=== PATIENT | male | born 1975 | race Caucasian/White ===

== ENCOUNTER → 2020-04-10 15:59 | Outpatient (CLI) | payer BC, SELFPAY ==
--- NOTE | 2020-04-10 16:16 | XR_ITS ---
PROCEDURE: XR HAND RT MIN 3V CLINICAL INDICATION: PAIN IN THUMB MCP, 4TH MCP JOINT COMPARISON: No exams were available for comparison FINDINGS: No fracture or dislocation. No lytic or blastic change. There is normal mineralization. There is an old fracture the 5th metacarpal distally with mild medial angulation of the distal aspect of the 5th metacarpal. Other findings:None. IMPRESSION: Old 5th metacarpal fracture otherwise negative Dictated by: Lenard Whitley MD 04/10/2020 16:46 Lenard Whitley MD in [place] 04/10/2020 16:46
== END ==
PROVIDERS: PCP Family Medicine; Visit Provider Family Medicine
DX: M79.644 Pain in right finger(s) (principal)
CPT/HCPCS: 73130

== ENCOUNTER → 2022-09-30 15:57 | Outpatient (CLI) | payer BC, SELFPAY ==
[2022-09-30 16:34] LABS: Basophils # 0.1 K/mm3 (0-0.2); Basophils % 0.7 % (0.1-2.0); Eosinophils # 0.5 K/mm3 (0.0-0.4); Eosinophils % 4.6 % (0.1-12.0); Hematocrit 46.2 % (42.0-52.0); Hemoglobin 15.1 g/dL (14.1-18.0); Lymphocytes # 4.4 K/mm3 (0.7-4.5); Lymphocytes % 38.5 % (10-50); Mean Corpuscular HGB Conc 32.6 g/dL (31.8-35.4); Mean Corpuscular Hemoglobin 29.6 pg (27.0-31.2); Mean Corpuscular Volume 90.7 fl (80-94); Monocytes # 0.7 K/mm3 (0.1-1.0); Neutrophils # 5.8 K/mm3 (1.8-7.8); Neutrophils % 50.2 % (37.0-80.0); Platelet Count 248 K/mm3 (142-424); Red Cell Distribution Width 13.9 % (11.5-17.5); White Blood Count 11.5 K/mm3 (4.8-10.8)
[2022-09-30 17:43] LABS: Uric Acid 4.7 mg/dl (3.5-8.5)
== END ==
PROVIDERS: PCP Nurse Practitioner Family; Visit Provider Nurse Practitioner Family
DX: M79.671 Pain in right foot (principal); L02.91 Cutaneous abscess, unspecified
CPT/HCPCS: 36415; 84550; 85025

== ENCOUNTER → 2022-10-03 13:49 | Outpatient (CLI) | payer BC, SELFPAY ==
--- NOTE | 2022-10-03 13:55 | XR_ITS ---
FINAL REPORT CLINICAL HISTORY: RT FOOT SWELLING FINDINGS: RIGHT FOOT 3 views of the right foot were obtained. There is no acute fracture or dislocation. Visualized joint spaces are normally aligned. Soft tissues are unremarkable. IMPRESSION: No acute bony abnormality. Reviewed, Interpreted and Dictated by Michael Mello MD Transcribed by Dorie Laboy Authenticated and . [facility]
== END ==
LOC: RAD 13:50
PROVIDERS: PCP Nurse Practitioner Family; Visit Provider Nurse Practitioner Family
DX: M79.671 Pain in right foot (principal); M79.89 Other specified soft tissue disorders
CPT/HCPCS: 73630

== ENCOUNTER 2024-06-12 17:30 | Emergency (ER) | payer OTHER, SELFPAY ==
[2024-06-12 17:38] VITALS: BP 141/88; PULSE 82; RESP 14; TEMP 37; O2SAT 98; BMI 25.7
[2024-06-12] MEDS: AMOXICILLIN/CLAVULANATE POTASSIUM 875/125MG TABLET 1 EACH PO (17:45)
--- NOTE | 2024-06-12 17:54 | HMH.EDGENADL ---
Discharge Plan Disposition Patient Disposition: Home, Self-Care Prescriptions Prescriptions: New dexamethasone 6 mg tablet 6 mg PO DAILY Qty: 5 0RF amoxicillin-pot clavulanate 875-125 mg tablet 1 tab PO BID 10 Days Qty: 20 0RF No Action meloxicam 7.5 MG tablet 7.5 mg PO BID clindamycin HCl [Cleocin HCl] 300 MG capsule 300 mg PO Q6H Qty: 40 0RF mupirocin 22 GM ointment 1 applicatio topical TID Qty: 1 0RF Referrals Follow up/Referrals: Provider,Referral, MD [Referring] - See instructions Activity Restrictions/Add. Instructions Additional Instructions/Restrictions: Call your family doctor to establish care for this visit to the emergency department and schedule follow-up within 48 hours to ensure improvement. If you have any worsening of your condition or any other concerning signs or symptoms,, or if redness seems to be spreading outside of the area currently is in after 3 days, return to the emergency department or your family doctor for further evaluation Clinical Impressions Clinical Impression: Septic bursitis of elbow Qualifiers: Laterality: right Qualified Code(s): M71.121 - Other infective bursitis, right elbow Print Language Print Language: Bermudian Discharge ED Provider: Elías Mccauley General Adult HPI General Chief complaint: PAIN Stated complaint: right elbow pain and swollen Time Seen by Provider: 06/12/24 17:36 Mode of Arrival: Ambulatory Source of Information: Patient Description of Symptoms (Recalled from ER Triage Doc. by RN): patient sattes in january he injuered his arm, in march he was seen due to the arm swelling and being sore and was diagnosed with cancer, yesterday he was helping a family member move things and his right elbow is swollen and painful today. the pain is sharp and constant, 7/10 History of Present Illness HPI narrative: Please note that above description of symptoms, in this electronic medical record under categorization of recalled from ER triage doctor by RN are reflective of an initial nursing assessment, however, is not reflective of my full history and physical exam that was personally taken and clarified. Consequentially, this preceding description of symptoms, which may include the patient's categorized chief complaint in the EMR, do not reflect my personal clinical impression, and the ultimate description of history of present illness and patient stated complaints should be deferred to this section of the note. Unless stated otherwise or congruent with this section of the note, additional signs, symptoms, or incongruence should be interpreted as inaccurate with my clinical impression. Related Data Home Medications ?Medication ?Instructions ?Recorded ?Confirmed meloxicam 7.5 mg tablet 7.5 mg PO BID Arthritis 11/24/17 11/24/17 Previous Rx's ?Medication ?Instructions ?Recorded clindamycin HCl 300 mg capsule 300 mg PO Q6H #40 caps 11/24/17 (Cleocin HCl) mupirocin 2 % topical ointment 1 applicatio topical TID #1 tube 11/24/17 amoxicillin 875 mg-potassium 1 tab PO BID 10 days #20 tabs 06/12/24 clavulanate 125 mg tablet dexamethasone 6 mg tablet 6 mg PO DAILY #5 tabs 06/12/24 Allergies Allergy/AdvReac Type Severity Reaction Status Date / Time Cephalosporins Allergy Unknown Verified 06/12/24 18:05 allergy reaction ANTIBIOTIC Allergy Unknown Uncoded 06/12/24 18:05 allergy reaction PFSH PFS Disclaimer: The information contained in this section may have been updated after the patient was seen, as this information can be updated by other users. Social History Smoking Status: Current every day smoker alcohol intake: never substance use type: marijuana current occupational status: employed Travel in the last 8 weeks: None ROS Obtained: Yes All systems reviewed & no additional complaints except as documented Physical Exam General General appearance: alert Head Head exam: atraumatic and normocephalic Eye Eye exam: Present normal appearance, PERRL and EOMI Neck Neck exam: Present normal inspection, full ROM and trachea midline Respiratory Respiratory exam: Absent respiratory distress, wheezes, stridor, accessory muscle use or prolonged expiratory phase Cardiovascular Cardiovascular exam: Present other (Pulses equal symmetric in upper and lower extremities) Abdominal Exam Abdominal exam: Present soft; Absent distention, tenderness or pulsatile mass Extremities Exam Extremities exam: Present edema, joint swelling and other (Swelling and redness about right elbow with associated warmth) Neurological Exam Neurological exam: Present alert, oriented X3 and CN II-XII intact; Absent motor sensory deficit Skin Skin exam: Present warm and dry; Absent diaphoresis or erythema Medical Decision Making Medical Records Medical records reviewed: Yes I reviewed the patient's medical records. Screening: Per USPSTF and CDC recommendations, given the prevalence of disease in our region, it is our hospital?s policy to screen for HIV and viral Hepatitis for all patients aged 18 and over and those with ongoing risk factors. Aldo Inquiry Pt receiving controlled substance: No Aldo was queried for this patient: No Vital Signs: 06/12/24 17:38 Temperature 98.6 F Temperature Source Oral Pulse Rate [Right] 82 Respiratory Rate 14 Blood Pressure [Left Arm] 141/88 H Blood Pressure Mean [Left Arm] 105 Blood Pressure Source [Left Arm] Automatic Cuff Blood Pressure Position [Left Arm] Sitting 02 Sat by Pulse Oximetry 98 Oxygen Delivery Method Room Air Orders (Tests/Meds): ED MEDICATIONS Discontinued Medications Generic Name Dose Route Start Last Admin Trade Name Freq PRN Reason Stop Dose Admin Amoxicillin/Clavulanate Potassium 1 each 06/12/24 17:42 06/12/24 17:45 Amoxicillin/Clavulanate Potassium 875/125mg Tablet PO 06/12/24 17:43 1 each ONCE ONE Administration ORDERS Category Date Time Status POCUS Point of Care (ER Only) Stat Exams 06/12/24 17:42 Ordered HIV Combo Stat Lab 06/12/24 17:44 Ordered Hepatitis C Ab Qual. W/ RFX Stat Lab 06/12/24 17:44 Ordered Medical Decision Narrative: 49-year-old male history of bursitis of his right elbow presenting with flareup of bursitis and redness and pain. States that he was doing fine until yesterday, 06/11. He started having redness, swelling, warmth of the right elbow. No difficulty or pain with range of motion, but it feels tight when he flexes his elbow. No other associated symptoms or constitutional symptoms. History was obtained via conversation with patient and . On arrival, patient hemodynamically stable, alert, oriented x4, appropriate, GCS 15, moving all extremities spontaneously, pupils equal and reactive to light. Full physical exam performed and significant for clinically well-appearing male no acute distress. Differential includes bursitis, cellulitis, septic bursitis, septic joint less likely, among others. Because patient without systemic signs or symptoms, hematologic workup was considered including CBC, chemistry, blood cultures, etc., but not deemed necessary. He does have full range of motion of the joint, so incredibly unlikely to be septic joint. Bedside [id number] ultrasound was performed. This was consistent with septic bursitis with surrounding cellulitis. Patient given first dose of Decadron for inflammation as well as Augmentin for infection. Because patient at baseline without signs or symptoms of clinical decompensation, deemed appropriate for discharge. Results were relayed to patient who voiced understanding and were agreeable to outpatient management and follow up. I discussed my clinical impression with patient and answered all questions. At this time, the evidence for any other entities in the differential is insufficient to warrant any further testing or ED observation. This was explained as well. Advisory was given that persistent or worsening symptoms require further evaluation. I confirmed the understanding of this discussion. [employer] disclaimer Much of this encounter note is an electronic soil science technical officer spoken language to printed text. Electronic soil science technical officer of the spoken language may permit errors. Although I have reviewed the note, some errors may still exist. Procedures Limited Ultrasound Indication:: Limited soft tissue ultrasound Indication: Soft tissue swelling and redness right elbow Identified structures: Location: Right elbow Findings: Septic bursitis with surrounding cellulitis Impression: Septic bursitis with surrounding cellulitis Images were saved to permanent archive The study was technically adequate Soft Tissue CPT Codes: CPT Neck: 33090-20 CPT Upper extremity: 91970-23 CPT Axilla: 81425-57 CPT Chest wall: 29180-33 CPT Breast: 92049-85-NE/LT (complete), 55117-40-BK/LT (limited), CPT Upper Back: 68975-79 CPT Lower Back: 35151-14 CPT Abdominal Wall: 04399-43 CPT Pelvic Wall: 78054-79 CPT Lower Extremity: 10884-96 CPT Other Soft Tissue: 79908-40 This study was performed by me, and I personally interpreted all images/videos. Based on my clinical judgement, these images were adequate and did not necessitate further imaging. Critical Care Critical Care Time Critical Care Time: No
[2024-06-12] MEDS: DEXAMETHASONE 4MG TABLET 10 MG PO (18:14)
[2024-06-12 18:21] VITALS: BP 145/78; PULSE 78; RESP 15; TEMP 36.9; O2SAT 99
--- OUTSIDE RECORDS SUMMARY | 2024-06-16 20:03 | XMS_ITS | Continuity of Care Document ---
Author Organization [facility], SURGERY SCHEDULE Address [address] [place] [phone] Care Team Providers Care Back Shoe Worker Name Role Phone CARMEN JAMESON Referring Provider Assessment No assessment recorded. Plan of Treatment Reminders Order Date Submit Date Provider Last Modified By Organization Details Last Modified Time Details Appointments None record ed. Lab None record ed. Referral None record ed. Procedures None record ed. Surgeries None record ed. Imaging None record ed. Medication Orders None record ed. Patient TargetsNo targets recorded. Patient InstructionsNo instructions recorded. Reason for Referral None Reported. Results Created Date Observation Date Name Description Value Unit Range Abnormal Flag Note LastModifiedBy Organization Detail LastModifiedTime 04/14/1904/14/2024 MRI, pelvi s, w/wo contr ast [facility] [address] [place] [address] Patifani t Name: KAYLEY huerta : 1974 Patifani t 2 Orderi ng Provid er: LUKE FERRARI EXAM DATE: 2024 EXAM: MR PELVIS ATTN PROSTA TE W/WO CONTRA ST CLINIC AL INFORM ATION: Elevat ed PSA TECHNI QUE: No POC testin g for eGFR was perfor med due to absenc e of risk factor s. Tripla ijeoma T2, axial DWI, ADC map, axial T1 pre- and dynami c postco ntrast -enhan lily images as well as axial T1 fat-sa t imagin g was perfor med after inject ion of 7.[address] (1 x 7.5 mL bottle of FORMERLY NAMED [facility] [id number]- [id number] ) IV. The patien t did not requir e sedati on for this exam. COMPAR ENRIQUE: None. FINDIN GS: PROSTA TE SIZE MEASUR EMENTS : Prosta te dimens ions = 4.2 x 3.7 x 4.2 cm (T x AP x CC). QUALIT Y: Good PERIPH ERAL ZONE: Overal l, periph eral zone is normal in size and backgr ound signal charac terist ics, A suspic ious focal lesion is seen as decibe d below. PI-RAD S catego ry = 4/5 locate d in the medical chemist ior periph eral zone left and right of midlin e at mid gland level. Measur ement = 12 mm. Seen best in image 12 of series 8001, 7006, 7007, and equivo cathy on dynami c imagin g. It is positi ve on T2 WI, ADC, DWI and DCE images . TRANSI TION ZONE: Multip le, well deline ated encaps ulated nodule s are seen consis tent with BPH. No suspic ious focal lesion is seen. CAPSUL E AND NEIGHB ORING STRUCT URES: No capsul ar invasi on is identi fied. Neuro- vascul ar bundle s are normal bilate rally. Semina l vesicl es are normal . PELVIC LYMPH NODES: Small likely benign bilate ral inguin al nodes. The larges t is on the left measur ing 1.5 cm PELVIC BONES: No suspic ious osseou s lesion is seen. IMPRES RUDDY: 1. Change s of BPH 2. BI-RAD S 4/5 lesion involv ing the medical chemist ior periph eral zone left right of midlin e, mid gland 3. Semina l vesicl es unrema rkable 4. Likely incide ntal bilate ral inguin al nodes Interp reted By: Carmen Valencia MD Electr onical ly Signed By: Carmen Valencia MD on 04/14/19 2:[address] [facility] Radiology [address], [phone], 04/27/2024 14:54:37 05/12/19 25 05/11/2024 NM, bone scan, whole body [address] [id number] Patien t Name: KAYLEY huerta : 1974 Patifani t 2 Orderi ng Provid er: LUKE FERRARI JR EXAM DATE: 2024 EXAM: NM BONE IMAGIN G, WHOLE BODY HISTOR Y: 49-yea r-old male with prosta te cancer . COMPAR ENRIQUE: None. TECHNI QUE: Whole body bone scan was perfor med using techne tium 99m MDP 23.6 mCi IV (FORMERLY NAMED [facility] [id number]). Two hour delaye d images were obtain ed. FINDIN GS: The calvar ium appear s normal . There are mild degene rative change s in the should ers and sterno clavic ular joints . The ribs appear normal . There are minima l degene rative change s throug hout the spine. There are mild degene rative change s in the hips, knees, and feet. No metast atic lesion is identi fied. IMPRES RUDDY: 1. There is no eviden ce of metast atic diseas e. Interp reted By: Yadira valdes MD Electr onical ly Signed By: Yadira valdes MD on 05/12/19 1:18 PM [facility] Nuclear Medicine [address] [place] [address], [address], 05/11/2024 17:06:38 05/31/19 25 05/30/2024 PET-C T, skull base to mid-t high scan [address] [address] [phone] [facility] Patien t Name: KAYLEY huerta : 1974 Patifani t 2 Orderi ng Provid er: LUKE FERRARI JR EXAM DATE: 2024 EXAM: PET-CT PSMA SKULL MID THIGH SUB ST CLINIC AL INFORM ATION: Prosta te Cancer - Initia l PROCED URE: A baseli ne serum creati nine with eGFR was obtain ed prior to inject ion of contra st medium due to the patien ts risk factor s for MARIA C. Calcul ated eGFR at time of exam was GFR = 70 6.7 mCi Ga-68 PSMA (FORMERLY NAMED [facility] [id number]- [id number] ) was inject ed IV. After an uptake time of 71 minute s, vertex throug h midthi gh PET imagin g was perfor med. This was follow ed by a low dose attenu ation correc tion/a natomi c locali zation CT from vertex throug h the midthi gh levels . Urinar y tract was opacif ied with an inject ion of 50 mL Omnipa que 350 (1 x 50 ml bottle of FORMERLY NAMED [facility] [id number] ) admini stered 20 minute s before the CT scan. None was wasted and discar ded. The patien t did not requir e sedati on for this exam. COMPAR ENRIQUE: None FINDIN GS ON PET WITH CT CORREL ATION: This study is limite d due to the patien t's inabil ity to hold still for the exam theref ore motion artifa ct is presen t creati ng misreg istrat ion. Normal expect ed uptake is seen in the lacrim al glands , saliva ry glands , sinona jamey comple x, liver, spleen , kidney s, small bowel and urinar y bladde r. Refere nce blood pool mean SUV = 0.7. Refere nce mean SUV of the liver = 4.3. Refere nce mean SUV of the paroti d glands = 12. Prosta te cancer specif ic areas of uptake are descri bed below. PROSTA TE/PRO STATIC BED: Psma avid prosta te with a lesion to the right of midlin e with an SUV is 6.4. PELVIC LYMPH NODES: No uptake is seen in any of the pelvic lymph node region s. DISTAN T SPREAD : No lympha denopa thy or abnorm al uptake is seen in the distan t retrop eriton eal, medias tinal, or suprac lavicu lar lymph node region s. No suspic ious skelet al lesion or area of uabnor mal skelet al uptake is seen. No suspic ious pulmon tobias nodule or area of abnorm al uptake is seen. ADDITI ONAL FINDIN GS ON CT: No signif icant additi onal findin g is seen. COMBIN ED IMPRES RUDDY: 1. Psma avid prosta te lesion compat ible with malign brinda 2. The exam is limite d due to misreg istrat ion artifa cts althou gh no gross eviden ce of local or distan t metast atic diseas e is noted Interp reted By: Carmen Valencia MD Electr onical ly Signed By: Carmen Valencia MD on 025 11:01 AM [facility] [address] [place], [phone], 05/30/2024 12:44:15 Result Notes None recorded. Problems Name Problem SNOMED Code Status Onset Date Resolution Date Notes Provider Name and Address Organization Details Recorded Time Prostate specific antigen above reference range 807478369 Active 025 LUKE HAYDEN JR, MD [address] [place], [address], [facility] 07:42:45 Malignant tumor of prostate 817126453 Active 025 LUKE HAYDEN JR, MD [address] [place] [address], [phone], [facility] 14:18:40 Problem Notes None recorded. Procedures Surgical History Date Name Laterality Status Provider Name and Address Organization Details Recorded Time 04/27/2024 Biopsy Prostate, Needle w/Transrect al US completed LUKE HAYDEN JR, MD [facility] [place], [address], [facility] 04/27/2024 15:02:15 Imaging Results None recorded. Procedure Notes None recorded. Medical Equipment None Reported. Allergies No known drug allergies Medications Name Sig Start Date Stop Date Status Note LastModified by Organization Details LastModified Time cefuroxime axetil 500 mg tablet Take 1 tablet every 12 hours by oral route. 05/13 completed Not Available Not Available Not Available Vitals None Recorded Social History Question Answer Notes LastModified by Organizat ion Details LastModified Time Tobacco Smoking Status [facility] 03/31/2024 13:28:13 What Is Your Level Of Alcohol Consumption? None [email or web address] Information not available 03/31/2024 How Many Times Per Week Do You Consume Alcohol? Less Than 1 Time Per Week [email or web address] Information not available 05/13/2024 Are You Currently Employed? Yes [email or web address] Information not available 03/31/2024 Do You Or Have You Ever Used E-cigarettes Or Vape? 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 03/31/2024 [email or web address] Information not available 03/31/2024 What Is Your Relationship Status? [email or web address] Information not available 03/31/2024 At What Age Did You Start Smoking Tobacco? 18 [email or web address] Information not available 03/31/2024 Do You Or Have You Ever Used Smokeless Tobacco? Never Used Smokeless Tobacco [email or web address] Information not available 05/13/2024 How Much Tobacco Do You Smoke? 1 PPD [email or web address] Information not available 03/31/2024 How Many Years Have You Smoked Tobacco? 30 [email or web address] Information not available 03/31/2024 Do You Or Have You Ever Used Any Other Forms Of Tobacco Or Nicotine? No [email or web address] Information not available 03/31/2024 Sex: Unknown Functional Status None recorded. Mental Status None recorded. Family History Relationship Description Onset Age of this Age Resolved Age Notes LastModified by Organization Details LastModified Time Paternal Grandmother Family history of malignant neoplasm 70 [email or web address] Not available 2024 10:48:36 Mother Type 2 diabetes mellitus 68 [email or web address] Not available 2024 10:48:36 Unspecified Relation Family history of malignant neoplasm [email or web address] Not available 03/31 13:28:13 Maternal Grandfather Family history of malignant neoplasm 91 [email or web address] Not available 2024 10:48:36 Paternal Grandfather Family history of malignant neoplasm 80 [email or web address] Not available 2024 10:48:36 Father Family history of malignant neoplasm [email or web address] Not available 03/31 13:28:13 Father Kidney stone 71 [email or web address] Not availab le 05/13/2024 10:48:36 Medical History Condition Response Arthritis Y False Teeth Y Past Encounters Encounter ID Performer Location Encounter Start Date Encounter Closed Date Diagnosis/Indication Diagnosis SNOMED-CT Code Diagnosis ICD10 Code Diagnosis Note [id number] Giovanna Vincent CUA, [facility] [address] [place] [address] 03/31/2024 12:53:54 03/31/2024 16:07:03 Prostate nodule 9862593920 29963 N40.2 Further investigat ion warranted due to nodular findings. Plan includes potential MRI and/or prostate biopsy based on initial test results to rule out neoplasm or other abnormalit ies. Informed consent for the investigat ion including risks and benefits was obtained. Screening for malignant neoplasm of prostate 122180242 Z12.5 Benign pro static hyperplasia with outflow obstruction 504702330 N40.1 [id number] LUKE HAYDEN JR, MD SURGERY SCHEDULE [address] [place] [address] 04/27/2024 12:43:50 04/27/2024 12:49:31 Prostate specific antigen above reference range 386798282 R97.20 Health Concerns Section Related Observation LastModified by Organization Detai ls LastModified Time None Recorded Concern Status LastModified by Organization Details LastModified Time None Recorded Payers Encounter Date Sequence Insurance Name Policy Number Policy López Covered Member ID López Member ID Guarantor Name 04/27/2024 1 [facility] [id number] Adrien Alvarado [id number] Maverick Alvarado Notes Date Note Type Note Provider Name and Address Organization Details Recorded Time 04/27/2024 text/html The patient is a 49-year-old male presenting with elevated PSA levels. The patient's PSA level is 6.73 as of January 22, 2024. He has no history of lower urinary tract symptoms and denies hematuria, dysuria, any episodes of urinary tract infections, or prostatitis. He has no family history of prostate cancer. He has not undergone any treatment for benign prostatic hyperplasia with medication or surgery. On examination, the prostate was found to be approximately 30 grams and nodular, particularly on the right side. History of Present Illness ?How long has patient had this problem?Unk nown ?What signs or symptoms is patient having?Non e ?Does the problem interfere with normal daily function?No ?Patient Current Weight ?187 pounds ?Patient Height ?6 feet ?Do you have Hypertension?No ?Problem Rating ?On a scale of 1-10, (10 is the worst), select the number that best describes your problem - 3 ?Who is your PCP (primary care)?Elia Jameson Imported from [employer] on 03/31/2024 LUKE HAYDEN JR, MD [address] [place], [address], [facility] 04/27/2024 15:02:35
--- OUTSIDE RECORDS SUMMARY | 2024-06-16 20:03 | XMS_ITS | Data Portability ---
Author Organization [facility] JESSICA French FREDONIA CLOSED Address [address] [facility] [address] [place] [address] Care Team Providers Care Still Cleaner Name Role Phone CARMEN TREADWELL Referring Provider [phone] Assessment Encounter Date Assessment Date Assessment LastModified by Organization Details LastModified Time 03/31/2024 03/31/2024 49-year-old male with history of elevated PSA presenting with elevated levels noted at 6.73. The differential diagnosis includes prostate pathology, necessitating further evaluation. Physical examination reveals a nodular prostate, suggesting possible prostate neoplasm or benign prostatic hyperplasia. Further diagnostic evaluation with PSA fraction, MRI, or biopsy is prudent for definitive diagnosis. [email or web address] Not available 03/31/2024 13:44:08 05/13/2024 05/13/2024 49-year-old male with a history of adenocarcinoma of the prostate presenting for follow-up for prostate cancer treatment options. Biopsy confirms diagnosis with Wharton 4+3=7 and PSA 6.54. Planning robotic-assisted laparoscopic prostatectomy with lymphadenectomy. Imaging guides intervention with pending PSMA PET scan to define approach. Patient informed and consented. [email or web address] Not available 05/13/2024 13:57:53 Plan of Treatment Reminders Order Date Submit Date Provider Last Modified By Organization Details Last Modified Time Details Appointments None recorded. Lab urinalysi s panel, auto 2024 025 [facility], [address], [place], [address], 07:28:58 PSA, total + free, serum or plasma 2024 025 [email or web address] [facility], [address] [place], [address], 16:08:23 Referral None recorded. Procedures None recorded. Surgeries prostatec chantelle with bilateral pelvic lymph node dissectio n, robot assisted laparosco pic (SURG) 2024 025 [facility] Surgery Scheduling, [address] [facility], [place], [address], 12:46:47 Imaging PET-CT, skull base to mid-thigh scan 2024 025 [facility], [address] [place], [address], 11:06:50 Medication Orders None recorded. Patient TargetsNo targets recorded. Patient Instructions Encounter Date Encounter Id Patient Instructions Last Modified By Organization Details Last Modified Time 03/31/2024 [id number] - Undergo the PS A free to total fraction test as discussed. - Await further instructions regarding potential MRI or biopsy based on test results. - Report any new urinary symptoms, bleeding, or discomfort immediately. [email or web address] Not available 03/31/2024 13:44:13 05/13/2024 [id number] - Prepare for scheduled robotic-assisted prostate surgery. - Understand catheter will remain for at least 10 days post-surgery. - Plan for recovery time, including potential impact on work. - Follow postoperative care instructions for healing, including catheter management. - Await further instructions pending PSMA PET scan results. - Report any complications or concerns immediately for quick follow-up. [email or web address] Not available 05/13/2024 13:57:55 We carried out a full lengthy discussion today of his disease, his specific prognostic parameters, and all available treatment options including /watchful waiting, radical prostatectomy, all forms of radiation therapy, HIFU and cryotherapy. We did discuss risks and potential complications of each form of therapy at length. We carried out a full lengthy discussion today of his disease, his specific prognostic parameters, and all available treatment options including /watchful waiting, radical prostatectomy, all forms of radiation therapy, HIFU and cryotherapy. We did discuss risks and potential complications of each form of therapy at length. He desires to proceed with RALRPX as described to him in detail. We will proceed with a nerve sparing approach if deemed technically feasible at the time of the procedure. We discussed the potential side effects of urinary incontinence and erectile dysfunction in particular. He fully understands risks and potential complications and desires to proceed. [email or web address] Not available 05/13/2024 14:51:11 Reason for Referral None Reported. Results Created Date Observation Date Name Description Value Unit Range Abnormal Flag Note LastModifiedBy Organization Detail LastModifiedTime 03/31/1903/31/2024 PSA, TOTAL AND FREE prostate specific Ag 6.540 NG/mL 0.000- 3.100 high The % Free PSA ratio is usefu l as an aid in disti nguis ale prost ate cance r from benig n prost ate condi tions in men 50 years or older who have a digit al recta l exam that is not suspi cious for prost ate cance r and a Total PSA value in the range of 4.0 - 10.0. Pleas e notif y the lab at 258-4 150 withi n 24 hrs if add-o n testi ng of Free PSA is lisa ed. This test was perfo rmed using Jamaal e801 Elect jamaal milum inesc ent metho d. The test metho d is based on WHO-s tanda rdize d calib ratio n. Value s obtai stefania from diffe rent assay metho ds or manuf actur ers may not be tomeka rable . Not Available [facility] [address] [place], [address], 03/31/2024 16:59:12 03/31/1903/31/2024 PSA, TOTAL AND FREE free PSA 1.81 NG/mL normal Test metho d is based on WHO-s tanda rdize d calib ratio n using the Jamaal E801 maria e zer. Free PSA resul ts by diffe rent test proce dures canno t be direc tly tomeka red with one anoth er. Not Available [facility] [address] [place] [address], [address], 03/31/2024 16:59:12 03/31/19 25 03/31/2024 PSA, TOTAL AND FREE % free PSA 28 % normal ____ PSA ng/mL % FREE PSA Proba bilit y of Prost ate Cance r % ____ Less than 4.00 N/A 17% 4.0 - 10.0 0-10 56% 10-15 28% 15-20 20% 20-25 16% Great er than 25 8% Great er than 10.0 N/A 49% ____ Not Available [facility] [address] [place] [address], [address], 03/31/2024 16:59:12 03/31/19 25 03/31/2024 urina lysis panel , auto Unknown Analyte Clean Catch Not Available [facility] [place] [address], [place], [address], 03/31/2024 13:31:05 03/31/19 25 03/31/2024 urina lysis panel , auto Unknown Analyte Yellow Not Available [facility] [place] [address], [place], [address], 03/31/2024 13:31:05 03/31/19 25 03/31/2024 urina lysis panel , auto Unknown Analyte Clear Not Available [facility] [address], [place], [address], 03/31/2024 13:31:05 03/31/19 25 03/31/2024 urina lysis panel , auto Unknown Analyte 1.020 Not Available [facility] [address], [place], [address], 03/31/2024 13:31:05 03/31/19 25 03/31/2024 urina lysis panel , auto Unknown Analyte 1.003- 1.035 Not Available [facility] [address], [place], [address], 03/31/2024 13:31:05 03/31/19 25 03/31/2024 urina lysis panel , auto Unknown Analyte 5.0 Not Available [facility] [address], [place], [address], 03/31/2024 13:31:05 03/31/19 25 03/31/2024 urina lysis panel , auto Unknown Analyte 5.0-8. 0 Not Available [facility] [address], [place], [address], 03/31/2024 13:31:05 03/31/19 25 03/31/2024 urina lysis panel , auto Unknown Analyte Negati ve Not Available [facility] [address], [place], [address], 03/31/2024 13:31:05 03/31/19 25 03/31/2024 urina lysis panel , auto Unknown Analyte Negati ve Not Available [facility] U[facility] [address], [place], [address], 03/31/2024 13:31:05 03/31/19 25 03/31/2024 urina lysis panel , auto Unknown Analyte Negati ve Not Available [facility] [address], [place], [address], 03/31/2024 13:31:05 03/31/19 25 03/31/2024 urina lysis panel , auto Unknown Analyte Negati ve Not Available [facility] [address], [place], [address], 03/31/2024 13:31:05 03/31/19 25 03/31/2024 urina lysis panel , auto Unknown Analyte Trace Not Available [facility] [address], [place], [address], 03/31/2024 13:31:05 03/31/19 25 03/31/2024 urina lysis panel , auto Unknown Analyte Negati ve Not Available [facility] [address], [place], [address], 03/31/2024 13:31:05 03/31/19 25 03/31/2024 urina lysis panel , auto Unknown Analyte Normal Not Available [facility] [address], [place], [address], 03/31/2024 13:31:05 03/31/19 25 03/31/2024 urina lysis panel , auto Unknown Analyte Normal Not Available [facility] [address], [place], [address], 03/31/2024 13:31:05 03/31/19 25 03/31/2024 urina lysis panel , auto Unknown Analyte Negati ve Not Available [facility] [address], [place], [address], 03/31/2024 13:31:05 03/31/19 25 03/31/2024 urina lysis panel , auto Unknown Analyte Negati ve Not Available [facility] [address], [place], [address], 03/31/2024 13:31:05 03/31/19 25 03/31/2024 urina lysis panel , auto Unknown Analyte Normal Not Available [facility] [address], [place], [address], 03/31/2024 13:31:05 03/31/19 25 03/31/2024 urina lysis panel , auto Unknown Analyte Normal 1 mg/dl Not Available [facility] [address], [place], [address], 03/31/2024 13:31:05 03/31/19 25 03/31/2024 urina lysis panel , auto Unknown Analyte Negati ve Not Available [facility] [address], [place], [address], 03/31/2024 13:31:05 03/31/19 25 03/31/2024 urina lysis panel , auto Unknown Analyte Negati ve Not Available [facility] U[facility] [address], [place], [address], 03/31/2024 13:31:05 03/31/19 25 03/31/2024 urina lysis panel , auto Unknown Analyte 50 Delvis/ul Not Available [facility] [address] [facility] [address], [place], [address], 03/31/2024 13:31:05 03/31/19 25 03/31/2024 urina lysis panel , auto Unknown Analyte Negati ve Not Available [facility] [address] [facility] [address], [place], [address], 03/31/2024 13:31:05 04/27/19 25 04/27/2024 SURGI CATHY surgical SEE BELOW abnormal Surgi cathy Patho logy Repor t NAME: ADRIEN COOK PATH: [id number] DATE of : [birth year] 60 Copy to: Diagn osis: Prost ate needl e core biops ies: A) Left base: - Prost atic adeno carci noma, Gleas on score 3+3 = 6, singl e minut e focus , less than 0.2 mm, withi n one small fragm ent. - Grade Group 1. B) Left mid: - Prost atic adeno carci noma, Gleas on score 4+3 = 7 (80% grade 4 patte rn). - Grade group 3. - Tumor invol ves 2 out of 2 cores , 95% and 85%. C) Left apex: - Prost atic adeno carci noma, Gleas on score 4+3 = 7 (80% grade 4 patte rn). - Grade group 3. - Tumor invol ves 2 out of 2 cores , 80% and 80%. D) Right base: - Prost atic adeno carci noma, Gleas on score 4+3 = 7 (60% grade 4 patte rn). - Grade group 3. - Tumor invol ves 3 out of 3 cores (80%, 70% and 10%). E) Right mid: - Prost atic adeno carci noma, Gleas on score 4+3 = 7 (60% grade 4 patte rn). - Grade group 3. - Tumor invol ves 2 out of 2 cores (95% and 80%). F) Right apex: - Prost atic adeno carci noma, Gleas on score 4+3 = 7 (60% grade 4 patte rn). - Grade group 3. - Tumor invol ves 2 out of 2 cores (100% and 90%). G) Perip heral zone lesio n: - Prost atic adeno carci noma, Gleas on score 4+3 = 7 (60% grade 4 patte rn). - Grade group 3. - Tumor invol ves 4 out of 6 cores (100% , 80%, 10% and 10%). SOUR E OF SPECI MEN: PROST ATE BIOPS Y, A) LEFT BASE & B) LEFT MID PROST ATE BIOPS Y, C) LEFT APEX & D) RIGHT BASE PROST ATE BIOPS Y, E) RIGHT MID & F) RIGHT APEX PROST ATE , PERIP HERAL ZONE LESIO N CLINI CATHY INFOR MATIO N: R97.2 0 PSA LEVEL : 6.54 Gross Descr iptio n: Elaine fischer's name and date of verif ied. Recei wojciech in forma natalia label ed with the elaine fischer's name are seven separ ate speci mens desig nated as prost ate biops y. All tissu e consi sts of painter cylin ders 0.[address] If tissu e from two sites is place d in one casse tte, the latte r site is inked black ; e.g. if tissu es from site A and B are in one casse tte, the tissu es from site B are inked . SECTI ON LENGT H IN CENTI METER S A) Left Base (2) 1.6 cm (2 cores ) B) Left Mid 1.6, 1.8 cm (2 cores ) C) Left [place] 1.4, 1.5 cm (2 cores ) D) Right Base 0.2, 1.3, 1.8 cm (3 cores ) E) Right Mid 1.8, 1.9 cm (2 cores ) F) Right [place] (2) 1.5 cm (2 cores ) G) Perip heral Zone Lesio n 0.2, 0.5, 0.6, 1.1, 1.2, 1.5 cm (6 cores ) -subm itted in casse ttes D1 (G1) and D2 (G2) SB 04/27 06:09 PM Micro scopi c Descr iptio n: A micro scopi c exami natio n has been perfo rmed and the resul t(s) are as noted above . ABRAM SIBLEY MD Irene d Out Date: 04/28 14:40 Page 1 of 1 Not Available [facility] [address] [place] [address], [address], 04/28/2024 14:40:19 04/14/19 25 04/14/2024 MRI, pelvi s, w/wo contr ast [address] [address] Patien t Name: KAYLEY COOK Patien t : 1974 Patien t 2 Orderi ng Provid er: LUKE [...] st (1 x 7.5 mL bottle of [facility] [address]059- 325-01 ) IV. The patien t did [...] ry = 4/5 locate d in the employee representative ior periph eral zone left and right [...] BI-RAD S 4/5 lesion involv ing the employee representative ior periph eral zone left right of midlin e, mid gland 3. Semina l vesicl es unrema rkable 4. Likely incide ntal bilate ral inguin al nodes Interp reted By: Carmen Valencia MD Electr onical ly Signed By: Carmen Valencia MD on 04/14/19 2:04 PM [facility] [address], [address], 04/27/2024 14:54:37 05/12/1905/11/2024 NM, bone scan, whole body [address] [address] [phone] Patien t Name: KAYLEY COOK Patien t : 1974 Patien t 2 Orderi ng Provid er: LUKE FERRARI EXAM DATE: 2024 EXAM: NM BONE IMAGIN G, WHOLE BODY HISTOR Y: 49-yea r-old male with prosta te cancer . COMPAR ENRIQUE: None. TECHNI QUE: Whole body bone scan was perfor med using techne tium 99m MDP 23.6 mCi IV ([facility] 458006 -0040- 1). Two hour delaye d images [...] Yadira valdes MD on 05/12/19 1:18 PM [facility] Nuclear Medicine [address] [place], [address], 05/11/2024 17:06:38 05/31/19 25 05/30/2024 PET-C T, skull base to mid-t high scan [facility] [address] [place] [address] [facility] Patien t Name: KAYLEY COOK Patien t : 1974 Patien t 2 Orderi ng Provid er: LUKE DALY [facility] EXAM DATE: 2024 EXAM: PET-CT PSMA SKULL MID THIGH SUB CLINIC AL INFORM ATION: Prosta te Cancer - Initia l PROCED URE: A baseli ne serum creati nine with eGFR was obtain ed prior to inject ion of contra st medium due to the patien ts risk factor s for MARIA C. Calcul ated eGFR at time of exam was GFR = 70 6.7 mCi Ga-68 PSMA ([facility] [address]44- 100-64 ) was inject ed IV. After [...] 350 (1 x 50 ml bottle of [facility] 0407-1 414-89 ) admini stered 20 minute [...] Carmen Valencia MD on 025 11:01 AM [facility] [address], [address], 05/30/2024 12:44:15 Result Notes None recorded. Problems Name Problem SNOMED Code Status Onset Date Resolution Date Notes Provider Name and Address Organization Details Recorded Time Prostate specific antigen above reference range 275932080 Active 025 LUKE HAYDEN JR, MD [address] [place] [address], [address], [facility] 5 07:42:45 Malignant tumor of prostate 077792098 Active 025 LUKE HAYDEN JR, MD [address] [place] [address], [address], [facility] 5 14:18:40 Problem Notes None recorded. Procedures Surgical History Date Name Laterality Status Provider Name and Address Organization Details Recorded Time 04/27/2024 Biopsy Prostate, Needle w/Transrect al US completed LUKE HAYDEN JR, MD [address] [place] [address], [address], [facility] 04/27/2024 15:02:15 Imaging Results Imaging Date Name Status LastModified by Organiz ation Details LastModified Time 04/14/2024 MRI, pelvis, w/wo contrast completed [facility] [address], [address], 04/27/2024 14:54:37 05/11/2024 NM, bone scan, whole body completed [facility] Nuclear Medicine [address] [place] [address], [address], 05/11/2024 17:06:38 05/30/2024 PET-CT, skull base to mid-thigh scan completed [facility] [address], [address], 05/30/2024 12:44:15 Procedure Notes None recorded. Medical Equipment None Reported. Allergies No known drug allergies Medications Name Sig Start Date Stop Date Status Note LastModified by Organization Details LastModified Time cefuroxime axetil 500 mg tablet Take 1 tablet every 12 hours by oral route. 05/13 completed Not Available Not Available Not Available Vitals Date Recorded Body height Body mass index (BMI) Body weight Provider Name and Address Organization Details Last Updated DateTime 03/31/2024 182.88 cm 25.4 kg/m2 67934.77 g Felicia Vogelers [facility] 03/31/2024 13:33:00 Date Recorded Body height Body mass index (BMI) Body weight Provider Name and Address Organization Details Last Updated DateTime 05/13/2024 182.88 cm 25.4 kg/m2 43947.77 g Hannah Escalanteson [facility] 05/13/2024 10:55:51 Social History Question Answer Notes LastModified by Organizat ion Details LastModified Time Tobacco Smoking Status Current Every Day Smoker Jessica [facility] 03/31/2024 13:28:13 What Is Your Level Of Alcohol Consumption? None Information not available 03/31/2024 How Many Times Per Week Do You Consume Alcohol? Less Than 1 Time Per Week [email or web address] Information not available 05/13/2024 Are You Currently Employed? Yes Information not available 03/31/2024 Do You Or Have You Ever Used E-cigarettes Or Vape? Never Used Electronic Cigarettes [email or web address] Information not available 05/13/2024 What Is Your Occupation? [employer] Information not available 03/31/2024 What Was The Date Of Your Most Recent Tobacco Screening? 03/31/2024 [email or web address] Information not available 03/31/2024 What Is Your Relationship Status? Information not available 03/31/2024 At What Age Did You Start Smoking Tobacco? 18 [email or web address] Information not available 03/31/2024 Do You Or Have You Ever Used Smokeless Tobacco? Never Used Smokeless Tobacco [email or web address] Information not available 05/13/2024 How Much Tobacco Do You Smoke? 1 PPD Information not available 03/31/2024 How Many Years Have You Smoked Tobacco? 30 [email or web address] Information not available 03/31/2024 Do You Or Have You Ever Used Any Other Forms Of Tobacco Or Nicotine? No Information not available 03/31/2024 Sex: Unknown Functional Status None recorded. Mental Status None recorded. Family History Relationship Description Onset Age of this Age Resolved Age Notes LastModified by Organization Details LastModified Time Paternal Grandmother Family history of malignant neoplasm 68 [facility] Not available 2024 10:48:36 Mother Type 2 diabetes mellitus 68 [facility] Not available 2024 10:48:36 Unspecified Relation Family history of malignant neoplasm [email or web address] Not available 03/31 13:28:13 Maternal Grandfather Family history of malignant neoplasm 91 [facility]-27 Not available 2024 10:48:36 Paternal Grandfather Family history of malignant neoplasm 80 [facility]-27 Not available 2024 10:48:36 Father Family history of malignant neoplasm [email or web address] Not available 03/31 13:28:13 Father Kidney stone 71 [facility]-27 Not availab le 05/13/2024 10:48:36 Medical History Condition Response Arthritis Y False Teeth Y Past Encounters Encounter ID Performer Location Encounter Start Date Encounter Closed Date Diagnosis/Indication Diagnosis SNOMED-CT Code Diagnosis ICD10 Code Diagnosis Note [id number] Giovanna Rambradley [facility]ESE [facility] [address] [place] [phone] 03/31/2024 12:53:54 03/31/2024 16:07:03 Prostate nodule 6824972090 27087 N40.2 Further investigat ion warranted due to nodular findings. Plan includes potential MRI and/or prostate biopsy based on initial test results to rule out neoplasm or other abnormalit ies. Informed consent for the investigat ion including risks and benefits was obtained. Screening for malignant neoplasm of prostate 669309799 Z12.5 Benign pro static hyperplasia with outflow obstruction 982403083 N40.1 [id number] LUKE HAYDEN JR, MD SURGERY SCHEDULE [address] [place] [address] 04/27/2024 12:43:50 04/27/2024 12:49:31 Prostate specific antigen above reference range 730677320 R97.20 [id number] LUKE HAYDEN JR, MD [facility] [address] [place] [address] 05/13/2024 10:48:35 05/13/2024 11:30:33 Adenocarcinoma of prostate 210488218 C61 Scheduled for robotic-as sisted laparoscop ic radical prostatect rubi with lymphadene ctomy post-adeno carcinoma confirmati on. Biopsy reflects Wharton 4+3=7; PSA 6.54. MRI shows lymphadeno bebo, PSMA PET for further evaluation , and robotic precision guidance noted. Post-op care includes catheteriz ation minimum 10 days. Risks, benefits, and alternativ es discussed; consent obtained. Pelvic lymphadenopathy 629658306 R59.0 Health Concerns Section Related Observation LastModified by Organization Detai ls LastModified Time None Recorded Concern Status LastModified by Organization Details LastModified Time None Recorded Advance Directives Directive None Recorded Payers Encounter Date Sequence Insurance Name Policy Number Policy López Covered Member ID López Member ID Guarantor Name 03/31/2024 1 [facility] [id number] Kaley Cook [id number] Maverick Cook 04/27/2024 1 [facility] [id number] Adrien Cook [id number] Maverick Cook 05/13/2024 1 [facility] [id number] Adrien Cook [id number] Maverick Cook Notes Date Note Type Note Provider Name and Address Organization Details Recorded Time 03/31/2024 text/html The patient is a 49-year-old male [...] Illness ?How long has patient had this problem?Unkno wn ?What signs or symptoms is patient having?None ?Does the problem interfere with normal daily function?No ?Patient Current Weight ?187 pounds ?Patient Height ?6 feet ?Do you have Hypertension?No ?Problem Rating ?On a scale of 1-10, (10 is the worst), select the number that best describes your problem - 3 ?Who is your PCP (primary care)?Carmen Treadwell Imported from [facility] on 03/31/2024 Giovanna Vincent [facility] 04/04/2024 14:56:43 04/27/2024 text/html The patient is a 49-year-old [...] Illness ?How long has patient had this problem?Unkno wn ?What signs or symptoms is patient having?None ?Does the problem interfere with normal daily function?No ?Patient Current Weight ?187 pounds ?Patient Height ?6 feet ?Do you have Hypertension?No ?Problem Rating ?On a scale of 1-10, (10 is the worst), select the number that best describes your problem - 3 ?Who is your PCP (primary care)?Carmen Treadwell Imported from [employer] on 03/31/2024 LUKE HAYDEN JR, MD [address] [place], [address], [facility] 04/27/2024 15:02:35 05/13/2024 text/html The patient is a 49-year-old male presenting with a follow-up for prostate cancer. Biopsy on April 27, 2024, indicated adenocarcinoma with Wharton 4+3=7. Initial PSA was 6.54. Bone scan negative for metastasis. MRI shows no extraprostatic extension. Genomic testing denotes high-risk genetic profile. Currently, planning robotic-assisted laparoscopic prostatectomy with lymphadenectomy. MRI identified lymphadenopathy, benign in appearance; PSMA PET scan pending for further evaluation. Surgery to involve robotic assistance, postoperative care with overnight hospital stay and catheterization for minimum 10 days. Discussed recovery impacting work. LUKE HAYDEN JR, MD [address] [place], [address], [facility] 05/13/2024 14:51:23
--- OUTSIDE RECORDS SUMMARY | 2024-06-16 20:03 | XMS_ITS | Continuity of Care Document ---
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 Biopsy confirms diagnosis with Ollie 4+3=7 and PSA 6.54. Planning robotic-assisted laparoscopic prostatectomy with lymphadenectomy. Imaging guides intervention with pending PSMA PET scan to define approach. Patient informed and consented. [email or web address] Not available 05/13/2024 13:57:53 Plan of Treatment Reminders Order Date Submit Date Provider Last Modified By Organization Details Last Modified Time Details Appointments None recorded. Lab None recorded. Referral None recorded. Procedures None recorded. Surgeries prostatect rubi with bilateral pelvic lymph node dissection , robot assisted laparoscop ic (SURG) 2024 025 [facility] Surgery Scheduling, [address] [facility], [place], [address], 12:46:47 Imaging PET-CT, skull base to mid-thigh scan 2024 025 [facility] Radiology [facility], [address] [facility], [place], [address], 11:06:50 Medication Orders None recorded. Patient TargetsNo targets recorded. Patient Instructions Encounter Date Encounter Id Patient Instructions Last Modified By Organization Details Last Modified Time 05/13/2024 [id number] - Prepare for scheduled robotic-assisted prostate surgery. [...] and potential complications and desires to proceed. [email or web address] Not available 05/13/2024 14:51:11 Reason for Referral None Reported. Results Created Date Observation Date Name Description Value Unit Range Abnormal Flag Note LastModifiedBy Organization Detail LastModifiedTime 05/12/1905/11/2024 NM, bone scan, whole body [address] [address] [place] Name: KAYLEY Fernandez t : 1974 [place] 2 Orderi ng Provid er: LUKE FERRARI EXAM DATE: 2024 EXAM: NM BONE IMAGIN G, WHOLE BODY HISTOR Y: 49-yea r-old male with prosta te cancer . COMPAR ENRIQUE: None. TECHNI QUE: Whole body bone scan was perfor med using techne tium 99m MDP 23.6 mCi IV ([facility] [id number] -[id number]). Two hour delaye d images [...] Yadira valdes MD on 05/12/19 1:18 PM [facility] Radiology Nuclear Medicine [address] [place] [address], [address], 05/11/2024 17:06:38 05/31/1905/30/2024 PET-C T, skull base to mid-t high scan [address] [address] [facility] Patien t Name: KAYLEY ALVARADO Patien t : 1974 Patien t 2 Orderi ng Provid er: LUKE FERRARI EXAM DATE: 2024 EXAM: PET-CT PSMA SKULL [...] GFR = 70 6.7 mCi Ga-68 PSMA ([facility] [id number] ) was inject ed IV. After [...] 350 (1 x 50 ml bottle of [facility] [id number] ) admini stered 20 minute [...] Carmen Valencia MD on 025 11:01 AM [facility] Radiology [facility] [address] [place], [address], 05/30/2024 12:44:15 Result Notes None recorded. Problems Name Problem SNOMED Code Status Onset Date Resolution Date Notes Provider Name and Address Organization Details Recorded Time Prostate specific antigen above reference range 137379086 Active 025 LUKE HAYDEN JR, MD [address] [place], [address], [facility] 07:42:45 Malignant tumor of prostate 257485051 Active 025 LUKE HAYDEN JR, MD [address] [place], [address], [facility] 14:18:40 Problem Notes None recorded. Procedures Surgical History Date Name Laterality Status Provider Name and Address Organization Details Recorded Time 04/27/2024 Biopsy Prostate, Needle w/Transrect al US completed LUKE HAYDEN JR, MD [address] [place], [address], [facility] 04/27/2024 15:02:15 Imaging Results None recorded. [...] Updated DateTime 05/13/2024 182.88 cm 25.4 kg/m2 88670.77 g Hannah Hernadez [facility] 05/13/2024 10:55:51 Social History Question Answer Notes LastModified by Organizat ion Details LastModified Time Tobacco Smoking Status Current Every Day Smoker Jessica smith [facility] 03/31/2024 13:28:13 What Is Your Level Of [...] Of Your Most Recent Tobacco Screening? 03/31/2024 lina Information not available 03/31/2024 What Is Your Relationship Status? [email or web address] Information not available 03/31/2024 At What Age Did You Start Smoking Tobacco? 18 [email or web address] Information not available 03/31/2024 Do You Or Have You Ever Used Smokeless Tobacco? Never Used Smokeless Tobacco [email or web address] Information not available 05/13/2024 How Much Tobacco Do You Smoke? 1 PPD [email or web address] Information not available 03/31/2024 How Many Years Have You Smoked Tobacco? 30 Information not available 03/31/2024 Do You Or Have You Ever Used Any Other Forms Of Tobacco Or Nicotine? No [email or web address] Information not available 03/31/2024 Sex: Unknown Functional Status None recorded. Mental Status None recorded. Family History Relationship Description Onset Age of this Age Resolved Age Notes LastModified by Organization Details LastModified Time Paternal Grandmother Family history of malignant neoplasm 70 [email or web address] Not available 2024 10:48:36 Mother Type 2 diabetes mellitus 68 [email or web address] Not available 2024 10:48:36 Unspecified Relation Family history of malignant neoplasm [email or web address] Not available 03/31 13:28:13 Maternal Grandfather Family history of malignant neoplasm 91 [email or web address] Not available 2024 10:48:36 Paternal Grandfather Family history of malignant neoplasm 80 [email or web address] Not available 2024 10:48:36 Father Family history of malignant neoplasm [email or web address] Not available 03/31 13:28:13 Father Kidney stone 71 [email or web address] Not availab le 05/13/2024 10:48:36 Medical History Condition Response False Teeth Y Arthritis Y Past Encounters Encounter ID Performer Location Encounter Start Date Encounter Closed Date Diagnosis/Indication Diagnosis SNOMED-CT Code Diagnosis ICD10 Code Diagnosis Note [id number] LUKE HAYDEN JR, MD SURGERY SCHEDULE [facility] [place] [address] 04/27/2024 12:43:50 04/27/2024 12:49:31 Prostate specific antigen above reference range 449913949 R97.20 [id number] LUKE HAYDEN JR, MD [facility] [address] [place] [address] 05/13/2024 10:48:35 05/13/2024 11:30:33 Adenocarcinoma of prostate 519051336 C61 Scheduled for robotic-as sisted laparoscop ic radical prostatect rubi with lymphadene ctomy post-adeno carcinoma confirmati on. Biopsy reflects Lagrange 4+3=7; PSA 6.54. MRI shows lymphadeno bebo, PSMA PET for further evaluation , and robotic precision guidance noted. Post-op care includes catheteriz ation minimum 10 days. Risks, benefits, and alternativ es discussed; consent obtained. Pelvic lymphadenopathy 635348903 R59.0 Health Concerns Section Related Observation LastModified by Organization Detai ls LastModified Time None Recorded Concern Status LastModified by Organization Details LastModified Time None Recorded Payers Encounter Date Sequence Insurance Name Policy Number Policy López Covered Member ID López Member ID Guarantor Name 05/13/2024 1 [facility] [id number] Adrien Alvarado [id number] Maverick Alvarado Notes Date Note Type Note Provider Name and Address Organization Details Recorded Time 05/13/2024 text/html The patient is a 49-year-old male presenting with a follow-up for prostate cancer. Biopsy on April 27, 2024, indicated adenocarcinoma with Ollie 4+3=7. Initial PSA was 6.54. Bone scan [...] recovery impacting work. LUKE HAYDEN JR, MD [facility] [place], [address], [facility] 05/13/2024 14:51:23
== END 2024-06-12 18:22 | disposition home or self-care (01) ==
PROVIDERS: Emergency Provider Emergency Medicine; PCP Social Worker
DX: M71.121 Other infective bursitis, right elbow (principal); M25.521 Pain in right elbow; R22.31 Localized swelling, mass and lump, right upper limb; Z72.0 Tobacco use
CPT/HCPCS: 99283; J8540